=== PATIENT | male | born 1975 | race Caucasian/White ===

== ENCOUNTER 2018-02-03 11:55 | Day surgery (SDC) | payer BC ==
[2018-02-03] MEDS ORDERED: PROPOFOL 10 MG/ML VIAL IV ONE (11:56)
[2018-02-03] MEDS ORDERED: LIDOCAINE 2% MDV (20MG/ML) 20ML VIAL IV ONE (11:56)
--- NOTE | 2018-02-04 13:00 | Operative Note ---
DATE OF SURGERY: 02/03/2018 OPERATION: COLONOSCOPY to the cecum and terminal ileum with multiple biopsies. INDICATION: Frequent diarrhea. The patient reports he has loose stools frequently, sometimes twice daily, which are soft to quite loose in consistency. Other times he might have more regular stools and, in fact, some days will pass no stool. He presents today for further evaluation. He is being evaluated for food intolerance from his primary care team. ANESTHESIA: Intravenous sedation was provided by the department of anesthesiology and included Diprivan titrated to effect. PROCEDURE: Following informed consent from this alert individual including a discussion of the risks and benefits of the procedure and an opportunity for the patient to ask questions, the patient was in the left lateral decubitus position. A digital rectal examination was performed. No abnormalities were noted. Following this, the Olympus [id number] video colonoscope was inserted into the rectum without resistance. The rectal mucosa had a normal appearance with normal folds and distensibility. The colonoscope was advanced up through the colon to the level of the cecum without much difficulty. Throughout the bowel the mucosa appeared normal, the folds were normal, and the bowel was fairly well distensible. The cecum was defined by noting the appendiceal orifice and ileocecal valve. The terminal ileum was cannulated and found to be normal as well. The colon preparation overall was good. From the base of the cecum, the colonoscope was slowly withdrawn. Random biopsies were taken from the right and left colon upon withdrawal to evaluate for possible microscopic changes although this would be clinically unlikely. No polyps, tumors, ulcerations, or erosions were seen throughout. Retroflexion in the rectum was endoscopically unremarkable. The endoscope was straightened and withdrawn. The patient tolerated the procedure well and was returned to the recovery area in stable condition. IMPRESSION: Unremarkable colonoscopy to the cecum and terminal ileum, random biopsies taken. RECOMMENDATIONS: Further recommendations will be forthcoming pending results of pathology obtained today. The patient was advised to follow up with his primary care physician. As always, thank you for allowing me to participate in the care of your patient. CC: OSIEL Nichols
== END 2018-02-03 14:10 | disposition home or self-care (01) ==
LOC: HOP 11:55
PROVIDERS: ATTEND Internal Medicine Gastroenterology
DX: K52.9 Noninfective gastroenteritis and colitis, unspecified (principal)